=== PATIENT | male | born 1975 | race Caucasian/White ===

== ENCOUNTER → 2016-05-29 | Outpatient (CLI) | payer BC ==
[~2016-05-29] MED LIST: ATIVAN 1MG T1 MG/TAB PO; BUDEPRION XL150 MG PO; CARDIZEM CD 12120 MG PO; FISH OIL SUPER1 SGL PO; FLOVENT 44MCG I13 GM IH; KLONOPIN 0.5MG0.5 MG PO; KLONOPIN WAFE0.25 MG PO; MASON NATURAL1200 MG PO; MOTRIN 400400 MG/TAB PO; MULTI VITAMINS1 TAB PO; NORCO 325 MG-51 TAB PO; PRILOSEC 20MG20 MG PO; PRISTIQ 50 MG T50 MG PO; PRISTIQ100 MG PO; XANAX .25M0.25 MG/TA PO; XOPENEX 0.0.63 MG/3 IH; ZOFRAN ODT4 MG PO; [UNRECOGNIZED DRUG - OTHER] PO
== END ==
LOC: BHSO 15:35
DX: F41.1 Generalized anxiety disorder (principal)

== ENCOUNTER → 2016-11-29 | Outpatient (CLI) | payer BC | LOC: BHSO 14:46 | DX: F41.1 Generalized anxiety disorder (principal) ==

== ENCOUNTER → 2017-11-21 | Outpatient (CLI) | payer BC | LOC: BHSO 15:29 | DX: F41.1 Generalized anxiety disorder (principal) | CPT/HCPCS: G0463 ==

== ENCOUNTER → 2018-06-05 | Outpatient (CLI) | payer BC | LOC: BHSO 08:59 | DX: F41.1 Generalized anxiety disorder (principal) | CPT/HCPCS: G0463 ==

== ENCOUNTER → 2018-07-17 | Outpatient (CLI) | payer BC | LOC: BHSO 15:27 | DX: F41.1 Generalized anxiety disorder (principal) | CPT/HCPCS: G0463 ==

== ENCOUNTER → 2019-01-14 | Outpatient (CLI) | payer BC | LOC: BHSO 15:51 | DX: F41.1 Generalized anxiety disorder (principal) | CPT/HCPCS: G0463 ==

== ENCOUNTER → 2019-07-13 | Outpatient (CLI) | payer BC | LOC: BHSO 15:36 | DX: F41.1 Generalized anxiety disorder (principal) | CPT/HCPCS: G0463 ==

== ENCOUNTER 2019-11-09 10:18 | Emergency (ER) | payer BC ==
[~2019-11-09] VITALS: Ht 177.8 cm; Wt 88.6 kg
[2019-11-09 10:56] LABS: BASO # 0.1 (0.0-0.2); BASO % 0.5 % (0.0-2.0); EOS # 0.2 (0.0-0.7); EOS % 1.8 % (0-4.0); GRAN # 6.4 (1.4-6.5); GRAN % 60.4 % (42.2-75.2); HEMATOCRIT 42.2 % (42.0-52.0); HEMOGLOBIN 14.4 g/dl (13.5-18.0); LYMPH % 28.6 % (20.0-51.0); MEAN CELL VOLUME 87 fl (80.0-100.0); MEAN CORPUSCULAR HEMOGLOBIN 30 pg (27.0-31.0); MEAN CORPUSCULAR HGB CONC 34 g/dl (33.0-37.0); MEAN PLATELET VOLUME 9.7 fl (7.4-10.4); MONO # 0.9 (0.1-0.6); MONO % 8.2 % (1.7-9.3); PLATELET COUNT 375 K/mm3 (130-400); RED BLOOD COUNT 4.84 M/mm3 (4.20-5.60); REDCELL DISTRIBUTION WIDTH-CV 12.4 % (11.5-14.5)
[2019-11-09] MEDS ORDERED: PRILOTC PO (11:07)
[2019-11-09 11:11] LABS: ALANINE AMINOTRANSFERASE 22 U/L (4-49); ALBUMIN 4.4 gm/dL (3.5-5.0); ALKALINE PHOSPHATASE 63 U/L (50-136); ANION GAP 11 mmol/L (7-16); AST,SGOT 24 U/L (15-37); BILIRUBIN,TOTAL 1.4 mg/dL (0.0-1.0); BLOOD UREA NITROGEN 15 mg/dL (9-20); CALCIUM 9.1 mg/dL (8.4-10.2); CARBON DIOXIDE 21 mmol/L (22-30); CHLORIDE 104 mmol/L (98-107); CREATININE, serum 1.12 (0.66-1.25); GLUCOSE 130 mg/dL (74-106); LIPASE 95 U/L (23-300); POTASSIUM 3.5 mmol/L (3.4-5.0); SODIUM 136 mmol/L (137-145); TOTAL PROTEIN 7.4 gm/dL (6.4-8.2)
[2019-11-09 11:13] LABS: C-REACTIVE PROTEIN < 0.5 mg/dL (0.0-0.9)
[2019-11-09 11:19] LABS: TROPONIN-I < 0.012 ng/mL (0.000-0.035)
[2019-11-09 11:34] LABS: COLLECTION METHOD CLEAN CATCH
[2019-11-09 11:47] LABS: MUCOUS Present /lpf; PH 6 (5-8); SQUAMOUS EPITHELIAL 0-2 /hpf; URINE APPEARANCE Clear; URINE BACTERIA None Seen /hpf; URINE BILIRUBIN Negative (NEGATIVE); URINE BLOOD Negative (NEGATIVE); URINE COLOR Yellow; URINE GLUCOSE Negative (NEGATIVE); URINE KETONE Negative (NEGATIVE); URINE LEUKOCYTE ESTERASE Negative (NEGATIVE); URINE NITRATE Negative (NEGATIVE); URINE PROTEIN(semi-quant) Negative (NEGATIVE); URINE RBC 0-2 /hpf; URINE UROBILINOGEN Negative (NEGATIVE)
[2019-11-09 12:31] VITALS: BP 98/76; PULSE 93; TEMP 97.7
[2019-11-09 12:39] VITALS: BP 114/63; PULSE 81; TEMP 97.5
== END 2019-11-09 12:33 | disposition short-term general hospital (02) ==
LOC: COL.ER 10:18
PROVIDERS: Emergency Medicine
DX: S36.81XA Injury of peritoneum, initial encounter (principal); R10.84 Generalized abdominal pain; F41.9 Anxiety disorder, unspecified; R55 Syncope and collapse; X58.XXXA Exposure to other specified factors, initial encounter
CPT/HCPCS: C9113; J2270; J2405; J7030; P9016; Q9967

== ENCOUNTER 2020-03-23 05:20 | Day surgery (SDC) | payer BC ==
[~2020-03-23] VITALS: Ht 177.8 cm; Wt 93.6 kg
[2020-03-23] VITALS (7 sets, daily range): BP systolic 102–122; BP diastolic 63–81; PULSE 59–80; TEMP 97.4–98.1
[~2020-03-23 05:20] MED LIST changes: +PRILOTC PO
[2020-03-23 06:00] LABS: BASO # 0.1 (0.0-0.2); BASO % 0.8 % (0.0-2.0); EOS # 0.2 (0.0-0.7); EOS % 2.9 % (0-4.0); GRAN # 3.8 (1.4-6.5); GRAN % 47.6 % (42.2-75.2); HEMATOCRIT 44.9 % (42.0-52.0); HEMOGLOBIN 15.1 g/dl (13.5-18.0); LYMPH % 37.1 % (20.0-51.0); MEAN CELL VOLUME 86 fl (80.0-100.0); MEAN CORPUSCULAR HEMOGLOBIN 29 pg (27.0-31.0); MEAN CORPUSCULAR HGB CONC 34 g/dl (33.0-37.0); MEAN PLATELET VOLUME 9.2 fl (7.4-10.4); MONO # 0.9 (0.1-0.6); MONO % 11.2 % (1.7-9.3); PLATELET COUNT 343 K/mm3 (130-400); RED BLOOD COUNT 5.24 M/mm3 (4.20-5.60); REDCELL DISTRIBUTION WIDTH-CV 13.2 % (11.5-14.5)
[2020-03-23] MEDS ORDERED: FLOMAX 0.40.4 MG/CAP PO (06:24)
[2020-03-23] MEDS ORDERED: XIFAXAN550 MG PO (06:25)
[2020-03-23] MEDS ORDERED: LIPITOR20 MG PO (06:25)
[2020-03-23] MEDS ORDERED: KLONOPIN 0.5MG0.5 MG PO (06:26)
[2020-03-23] MEDS ORDERED: BUSPAR5 MG PO (06:27)
[2020-03-23] MEDS ORDERED: REGLAN 10MG10 MG/TAB PO (06:27)
[2020-03-23] MEDS ORDERED: ULTRAM 50MG TAB50 MG PO (09:53)
--- NOTE | 2020-03-23 10:40 | NUR ---
Patient returns to room 8 per cart accompanied by Colette DAVIS and is awake and alert. Temp 97.7 and sats 98% on 2L per nasal cannula. IV fluids infusing and site is free of redness. Exofin dressing clean and dry on the left mid back, right upper arm, and laparoscopic sites on left side of abdomen x3. Siderails up x2 and call light in reach. Complains of feet being cold and warm blanket applied.
--- NOTE | 2020-03-23 10:55 | NUR ---
Drinking water and denies pain or nausea.
--- NOTE | 2020-03-23 11:10 | NUR ---
Resting with eyes closed when not disturbed.
--- NOTE | 2020-03-23 11:25 | NUR ---
Talking with spouse. IV fluids continue to infuse. No drainage noted from lipoma excision sites or left side of abdomen. States that he is having only minimal soreness and denies need for pain medications.
--- NOTE | 2020-03-23 11:40 | NUR ---
Oxygen removed and sats remain 95%. Eating toast and denies nausea.
--- NOTE | 2020-03-23 12:05 | NUR ---
Assisted up to the bathroom and is able to void. Ambulates in the hallway and gait steady. Medicated with [place] 5mg one tab for incisional soreness with movement. IV was converted to INT.
--- NOTE | 2020-03-23 12:10 | NUR ---
INT needle discontinued and site is free of redness. Patient dresses self.
--- NOTE | 2020-03-23 12:27 | NUR ---
Dismissal instructions given and voices understanding of these. Informed that script was sent to [facility] pharmacy for Ultram.
--- NOTE | 2020-03-23 12:31 | NUR ---
Patient dismissed to home driven by spouse and taken to the front door per wheelchair by this RN and assisted into vehicle with instructions in hand.
== END 2020-03-23 12:31 | disposition home or self-care (01) ==
LOC: SDCO 05:20
PROVIDERS: Surgery
DX: K43.2 Incisional hernia without obstruction or gangrene (principal); D17.1 Benign lipomatous neoplasm of skin and subcutaneous tissue of trunk; D17.21 Benign lipomatous neoplasm of skin and subcutaneous tissue of right arm; E78.5 Hyperlipidemia, unspecified; G47.33 Obstructive sleep apnea (adult) (pediatric); K58.9 Irritable bowel syndrome, unspecified; F41.9 Anxiety disorder, unspecified; N40.0 Benign prostatic hyperplasia without lower urinary tract symptoms; Z20.828 Contact with and (suspected) exposure to other viral communicable diseases; Z79.899 Other long term (current) drug therapy; Z85.828 Personal history of other malignant neoplasm of skin; Z87.891 Personal history of nicotine dependence; Z91.048 Other nonmedicinal substance allergy status
CPT/HCPCS: C1781; J1885; J2405; J2704; J3010; J7120

== ENCOUNTER 2020-08-23 16:40 | Emergency (ER) | payer BC ==
[~2020-08-23] VITALS: Ht 177.8 cm; Wt 98.2 kg
[~2020-08-23 16:40] MED LIST changes: +BUSPAR5 MG PO; +FLOMAX 0.40.4 MG/CAP PO; +LIPITOR20 MG PO; +REGLAN 10MG10 MG/TAB PO; +ULTRAM 50MG TAB50 MG PO; +XIFAXAN550 MG PO
[2020-08-23 16:56] VITALS: TEMP 98
[2020-08-23 17:49] LABS: BASO % 0.5 % (0.0-2.0); EOS # 0.2 (0.0-0.7); EOS % 2.6 % (0-4.0); GRAN # 3.8 (1.4-6.5); GRAN % 49.7 % (42.2-75.2); HEMATOCRIT 42.6 % (42.0-52.0); HEMOGLOBIN 14.6 g/dl (13.5-18.0); LYMPH # 2.8 (1.2-3.4); LYMPH % 36.4 % (20.0-51.0); MEAN CELL VOLUME 86 fl (80.0-100.0); MEAN CORPUSCULAR HEMOGLOBIN 30 pg (27.0-31.0); MEAN CORPUSCULAR HGB CONC 34 g/dl (33.0-37.0); MEAN PLATELET VOLUME 9.6 fl (7.4-10.4); MONO # 0.8 (0.1-0.6); MONO % 10.5 % (1.7-9.3); PLATELET COUNT 322 K/mm3 (130-400); RED BLOOD COUNT 4.94 M/mm3 (4.20-5.60); REDCELL DISTRIBUTION WIDTH-CV 12.7 % (11.5-14.5)
[2020-08-23 18:02] LABS: ALANINE AMINOTRANSFERASE 33 U/L (4-49); ALBUMIN 4.4 gm/dL (3.5-5.0); ALKALINE PHOSPHATASE 56 U/L (50-136); ANION GAP 9 mmol/L (7-16); AST,SGOT 29 U/L (15-37); BILIRUBIN,TOTAL 0.6 mg/dL (0.0-1.0); BLOOD UREA NITROGEN 15 mg/dL (9-20); CALCIUM 9.5 mg/dL (8.4-10.2); CARBON DIOXIDE 23 mmol/L (22-30); CHLORIDE 107 mmol/L (98-107); CREATININE, serum 1.03 (0.66-1.25); GLUCOSE 93 mg/dL (74-106); LIPASE 129 U/L (23-300); POTASSIUM 3.8 mmol/L (3.4-5.0); SODIUM 139 mmol/L (137-145); TOTAL PROTEIN 7.6 gm/dL (6.4-8.2)
[2020-08-23 18:14] LABS: C-REACTIVE PROTEIN < 0.5 mg/dL (0.0-0.9)
[2020-08-23 18:15] LABS: COLLECTION METHOD CLEAN CATCH
[2020-08-23 18:26] LABS: PH 6 (5-8); SQUAMOUS EPITHELIAL None Seen /hpf; URINE APPEARANCE Clear; URINE BACTERIA None Seen /hpf; URINE BILIRUBIN Negative (NEGATIVE); URINE BLOOD Negative (NEGATIVE); URINE COLOR Straw; URINE GLUCOSE Negative (NEGATIVE); URINE KETONE Negative (NEGATIVE); URINE LEUKOCYTE ESTERASE Negative (NEGATIVE); URINE NITRATE Negative (NEGATIVE); URINE PROTEIN(semi-quant) Negative (NEGATIVE); URINE RBC 0-2 /hpf; URINE UROBILINOGEN Negative (NEGATIVE)
[2020-08-23 19:22] VITALS: BP 129/84; PULSE 60
== END 2020-08-23 19:30 | disposition home or self-care (01) ==
LOC: COL.ER 16:40
PROVIDERS: Family Medicine
DX: R10.11 Right upper quadrant pain (principal); R07.89 Other chest pain; R20.2 Paresthesia of skin; Z87.891 Personal history of nicotine dependence
CPT/HCPCS: J2405; J7120